=== PATIENT | male | born 1990 | race African-American/Black ===

== ENCOUNTER 2017-11-03 15:26 | Emergency (ER) | payer OTHER ==
--- NOTE | 2017-11-03 15:28 | PDOC ---
History of Present Illness - General Stated Complaint: SEIZURES History Source: Patient Exam Limitations: No Limitations - History of Present Illness Initial Comments: 11/03/17 15:52 Depakote 500mg 1 tab po BID Keppra 750mg 1 tab po bid 26-year-old male with a history of seizures tucker who states they EMS states patient hit his left shoulder on the floor while seizing. The patient had a witnessed seizure lasting for approximately 30 seconds at his girlfriend's house. Girlfriend says Kevin never hit his head.. Patient denies any headache, dizziness, lightheadedness, visual disturbance, neck pain/stiffness, back pain, chest pain, shortness of breath, abdominal pains, flank pains, urinary symptoms , extremity numbness or tingling sensation. 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 Timing/Duration: 1 hour Past History - Past Medical History Allergies/Adverse Reactions: Allergies Allergy/AdvReac Type Severity Reaction Status Date / Time phenytoin sodium AdvReac vomiting Verified 11/03/17 15:45 [From Dilantin] and headaches phenytoin sodium extended AdvReac vomiting Verified 03/22/14 06:20 [From Dilantin] and headaches Home Medications: Ambulatory Orders Levetiracetam [Keppra] 1,000 mg PO BID 06/09/13 Divalproex Sodium [Depakote] 500 mg PO BID 11/03/17 Levetiracetam [Keppra -] 750 mg PO BID #60 tablet 11/03/17 Seizures: Yes - Suicide/Smoking/Psychosocial Hx Smoking Status: No Smoking History: Never smoked Number of Cigarettes Smoked Daily: 0 Review of Systems - Review of Systems Able to Perform ROS?: Yes Comments:: 11/03/17 16:53 CONSTITUTIONAL: Absent: fever, chills, diaphoresis, generalized weakness, malaise, loss of appetite HEENT: Absent: rhinorrhea, nasal congestion, throat pain, throat swelling, difficulty swallowing, mouth swelling, ear pain, eye pain, visual Changes CARDIOVASCULAR: Absent: chest pain, loss of consciousness, palpitations, irregular heart rate, peripheral edema RESPIRATORY: Absent: cough, shortness of breath, dyspnea with exertion, orthopnea, wheezing, stridor, hemoptysis GASTROINTESTINAL: Absent: abdominal pain, abdominal distension, nausea, vomiting, diarrhea, constipation, melena, hematochezia GENITOURINARY: Absent: dysuria, frequency, urgency, hesitancy, hematuria, flank pain, genital pain MUSCULOSKELETAL: +left shoulder pain Absent: myalgia, arthralgia, joint swelling SKIN: Absent: rash, itching, pallor HEMATOLOGIC/IMMUNOLOGIC: Absent: easy bleeding, easy bruising, lymphadenopathy, frequent infections ENDOCRINE: Absent: unexplained weight gain, unexplained weight loss, heat intolerance, cold intolerance NEUROLOGIC: Absent: headache, focal weakness or paresthesias, dizziness, unsteady gait, seizure, mental status changes, bladder or bowel incontinence Is the patient limited Japanese proficient: No *Physical Exam - Physical Exam Comments: 11/03/17 16:53 GENERAL: Well developed, well nourished. Awake and alert. No acute distress. HEENT: Normocephalic, atraumatic. PERRLA, EOMI. No conjunctival pallor. Sclera are non- icteric. Moist mucous membranes. Oropharynx is clear. NECK: Supple. Full ROM. No JVD. Carotid pulses 2+ and symmetric, without bruits. No thyromegaly. No lymphadenopathy. CARDIOVASCULAR: Regular rate and rhythm. No murmurs, rubs, or gallops. Distal pulses are 2+ and symmetric. PULMONARY: No evidence of respiratory distress. Lungs clear to auscultation bilaterally. No wheezing, rales or rhonchi. ABDOMINAL: Soft. Non-tender. Non-distended. No rebound or guarding. No organomegaly. Normoactive bowel sounds. MUSCULOSKELETAL Normal range of motion at all joints. No bony deformities or tenderness. No CVA tenderness. EXTREMITIES: No cyanosis. No clubbing. No edema. No calf tenderness. SKIN: Warm and dry. Normal capillary refill. No rashes. No jaundice. NEUROLOGICAL: Alert, awake, appropriate. Cranial nerves 2-12 intact. No deficits to light touch and temperature in face, upper extremities and lower extremities. No motor deficits in the in face, upper extremities and lower extremities. Normoreflexic in the upper and lower extremities. Normal speech. Toes are down- going bilaterally. Gait is normal without ataxia. PSYCHIATRIC: Cooperative. Good eye contact. Appropriate mood and affect. Left shoulder F.R.O.M. Neg obv deformities Valencia swelling Left elbow F.R.O.M. neg pain on palp ED Treatment Course - LABORATORY CBC & Chemistry Diagram: 11/03/17 15:32 11/03/17 15:32 *DC/Admit/Observation/Transfer Diagnosis at time of Disposition: Seizure Qualifiers: Convulsion type: unspecified Qualified Code(s): R56.9 - Unspecified convulsions - Discharge Dispostion Condition at time of disposition: Stable Admit: No - Prescriptions Prescriptions: Levetiracetam [Keppra -] 750 mg PO BID #60 tablet - Referrals Referrals: Jayjay Candelaria [Non Staff, Medical] - - Patient Instructions Printed Discharge Instructions: Seizure Disorder -- Adult Additional Instructions: Return to the ER as needed A new prescription: Keppra 750mg 1 tablet by mouth twice a day has been sent to [facility] Return to the ER for any concerns Follow up with Dr. Larson on 11/06/2017Sunday at 8:15am - Post Discharge Activity Progress Note - Progress Note Progress Note: 2nd call: Dr. Yovanny Candelaria [id number]. Marsha Tripp covering 1816hrs: Spoke to Dr. Larson. Advised pt was given Keppra [address] Larson says he wants to see pt on Sunday11/06/2017 at 0815hrs. -pt agrees with plan 1910hrs: Pt feels great. Insists on leaving.
[2017-11-03] MEDS ORDERED: SODIUM CHLORIDE 1,000 ML IV STA (15:29)
[2017-11-03] MEDS ORDERED: levETIRAcetam 500 MG/5 ML INJECTION VIAL IVPB ONE ×2 (15:50→15:56)
[2017-11-03 15:54] LABS: MCH 27.4 pg (25.7-33.7); MCHC 32.5 g/dl (32.0-35.9); MEAN CELL VOLUME 84.3 fl (80-96); MEAN PLT VOLUME 9.1 fl (7.5-11.1); PLATELET COUNT 141 K/MM3 (134-434); RDW 13.1 % (11.9-15.9); WHITE BLOOD COUNT 4.3 K/mm3 (4.0-10.0)
[2017-11-03 15:58] VITALS: TEMP 98.5; BMI 30.7
[2017-11-03 16:26] LABS: ALBUMIN 3.9 g/dl (3.4-5.0); ANION GAP 11 (8-16); CALCIUM 8.6 mg/dL (8.5-10.1); CO2 23 mmol/L (21-32); CREATININE 1.1 mg/dL (0.7-1.3); GLUCOSE,RANDOM 142 mg/dL (74-106); SGOT/AST 12 U/L (15-37); SGPT/ALT 27 U/L (12-78)
[2017-11-03 16:28] LABS: ALK PHOS 91 U/L (45-117); BILIRUBIN,TOTAL 0.5 mg/dL (0.2-1.0); TOT PROT 7.5 g/dl (6.4-8.2)
[2017-11-03] MEDS ORDERED: METOCLOPRAMIDE HCL INJECTION 10 MG/2 ML VIAL IVPUSH ONE (16:54)
[2017-11-03] MEDS ORDERED: METOCLOPRAMIDE HCL INJECTION 10 MG/2 ML VIAL ONE (16:55)
[2017-11-03 17:56] LABS: URINE MARIJUANA THC NEGATIVE ng/ml (CUTOFF=50)
[2017-11-03 18:54] VITALS: BP 137/84; PULSE 87
== END 2017-11-03 19:29 | disposition home or self-care (01) ==
LOC: JER 15:26
PROC: 3E033GC Introduction of Other Therapeutic Substance into Peripheral Vein, Percutaneous Approach (ICD-10-PCS; principal; 2017-11-03)
PROC: 3E033GC Introduction of Other Therapeutic Substance into Peripheral Vein, Percutaneous Approach (ICD-10-PCS; 2017-11-03)
DX: R56.9 Unspecified convulsions (principal); W19.XXXA Unspecified fall, initial encounter; Y93.89 Activity, other specified; Y92.89 Other specified places as the place of occurrence of the external cause; Y99.8 Other external cause status
CPT/HCPCS: 36415; 80053; 80164; 80307; 85027; 99283-25